=== PATIENT | male | born 1950 | race Caucasian/White ===

== ENCOUNTER 2020-06-15 05:42 | Day surgery (SDC) | payer OTHER, SELFPAY ==
[~2020-06-15] VITALS: Ht 174 cm; Wt 118.4 kg
[~2020-06-15 05:42] MED LIST: ATOR20 PO; BENADRYL25 MG PO; CLOP75 PO; Flonase 0.05% N16 GM; LISI5 PO; TAMS.4ER PO
--- NOTE | 2020-06-15 07:08 | NUR ---
Ambulatory in Day Surgery History, Chart, Medications and Allergies reviewed before start of procedure.Patient confirms NPO status and agrees with scheduled surgery. Patient reports completing Chlorhexadine shower X2 prior to admission to hospital.Surgical site prepped with 2% Chlorhexidine cloth wipe.
--- NOTE | 2020-06-15 12:02 | NUR ---
PT ARRIVED TO UNIT AT APROX 1145 FROM PACU. POD 0 L ANTERIOR HIP. AQUACEL DRESSING C/D/I. PT A/O, PT REPORTS PAIN /10 BUT STATES "I CAN DEAL WITH PAIN", DOES NOT APPEAR TO BE IN ANY DISTRESS AND APPEARS TO BE RESTING COMFORTABLY. PT OFFERED CLEAR LIQUIDS, WILL ADVANCE TOLERATED AND START ON PO PAIN MGMT ONCE HE IS TOLERATING PO.
--- NOTE | 2020-06-16 04:19 | NUR ---
SHIFT SUMMARY: PT POD#1 FOR LT ROSE. AQUACEL DRESSING C/D/I WITH POLAR PACK IN PLACE. PAIN BEING MANAGED WITH 5MG OXY Q4 AND SCHEDULED TORADOL+TYLENOL. PT SUGAR PO. DENIES N/V. VOIDING WELL. OUT OF BED TO BATHROOM WITH SBA AND FWW+GB. ABX COMPLETE. PT SALINE LOCKED. PLAN FOR PHYSICAL THERAPY TODAY THEN DISCHARGE HOME.
[2020-06-16 04:47] LABS: BASOPHILS ABSOLUTE AUTO 0.02 K/mm3 (0.00-0.23); BASOPHILS PERCENT AUTO 0 % (0-2); EOSINOPHILS ABSOLUTE AUTO 0.01 K/mm3 (0.00-0.68); EOSINOPHILS PERCENT AUTO 0 % (0-6); Hematocrit 39.2 % (37.0-53.0); Hemoglobin 12.9 g/dL (13.5-17.5); IMMATURE GRAN ABSOLUTE AUTO 0.06 K/mm3 (0.00-0.10); IMMATURE GRAN PERCENT AUTO 0 % (0-1); LYMPHOCYTES ABSOLUTE AUTO 1.41 K/mm3 (0.84-5.20); LYMPHOCYTES PERCENT AUTO 10 % (21-46); MONOCYTES ABSOLUTE AUTO 1.44 K/mm3 (0.16-1.47); MONOCYTES PERCENT AUTO 11 % (4-13); Mean Corpuscular HGB 29.5 pg (26.0-34.0); Mean Corpuscular HGB Conc 32.9 g/dL (31.5-36.5); Mean Corpuscular Volume 90 fL (80-100); NEUTROPHILS ABSOLUTE AUTO 10.82 K/mm3 (1.96-9.15); NEUTROPHILS PERCENT AUTO 79 % (41-73); Platelet Count 155 K/mm3 (150-400); RDW Coefficient Variation 12.8 % (11.7-14.2); Red Blood Cell Count 4.38 M/mm3 (4.30-5.90); White Blood Cell Count 13.76 K/mm3 (4.00-11.30)
[2020-06-16 05:07] LABS: Anion Gap 6 mmol/L (6-16); Blood Urea Nitrogen 29 mg/dL (8-24); Bun/Creatinine Ratio 25.4 (12.0-20.0); CO2, Blood 26 mmol/L (21-32); Chloride, Blood 104 mmol/L (98-108); Creatinine, Blood 1.14 mg/dL (0.60-1.20); Glomerular Filtration Rate >60 (60-); Glucose, Blood 141 mg/dL (70-99); Magnesium, Blood 2.2 mg/dL (1.6-2.4); Potassium, Blood 4.1 mmol/L (3.5-5.5); Sodium, Blood 136 mmol/L (136-145)
[2020-06-16] MEDS ORDERED: ACET500 PO (08:58)
[2020-06-16] MEDS ORDERED: ROXICODONE5 MG PO (08:58)
--- NOTE | 2020-06-16 09:51 | NUR ---
06/16/20 0951 Sandie Rodriguez VERIFICATIONS: EDIT CHART.
--- NOTE | 2020-06-16 10:03 | NUR ---
CHARIS BEEN HERE TO SEE PT.
--- NOTE | 2020-06-16 10:21 | NUR ---
THERAPY IN ROOM.
--- NOTE | 2020-06-16 10:59 | NUR ---
DISCHARGE: PT EATING, DRINKING, VOIDING, PASSING GAS. PT/FAMILY REPORTS UNDERSTANDING OF DISCHARGE ISTRUCTIONS. PT REPORTS HAVING WALKER AT HOME. PT CLEARED THERAPY TO GO HOME. PT SENT WITH DRESSING SUPPLIES, ICE MACHINE, BELONGINGS. IV OUT WNL, PT REPORTS NO OTHER IV'S IN PLACE. PT ASSISTED WITH GETTING DRESSED BY TIE TAPE MACHINE OPERATOR. PT REPORTS WOULD LIKE TO TAKE SHOWER AT HOME.
== END 2020-06-16 10:55 | disposition home or self-care (01) ==
LOC: ORSCMMR 05:42 → ORD 07:30 → ORSCMMR 07:30 → SURS 11:21 → ORSCMMR 06-16 10:55
PROVIDERS: Orthopaedic Surgery
PROC: 0SRB0JA Replacement of Left Hip Joint with Synthetic Substitute, Uncemented, Open Approach (ICD-10-PCS; principal; 2020-06-15 07:30)
DX: M16.12 Unilateral primary osteoarthritis, left hip (principal); I10 Essential (primary) hypertension; N18.30 Chronic kidney disease, stage 3 unspecified; E78.5 Hyperlipidemia, unspecified; Z86.73 Personal history of transient ischemic attack (TIA), and cerebral infarction without residual deficits; E66.01 Morbid (severe) obesity due to excess calories; Z68.39 Body mass index [BMI] 39.0-39.9, adult; Z79.899 Other long term (current) drug therapy
CPT/HCPCS: 36415; 72170; 80048; 83735; 85025; 88300; 97110; 97116; 97162; 97530; A9270; C1776; J0171; J0690; J0735; J1885; J2270; J2370; J2704; J2795; J3010; J7120

== ENCOUNTER → 2020-12-23 | Outpatient (CLI) | payer OTHER | END | disposition home or self-care (01) | LOC: LAB SHORT 09:50 | DX: D72.829 Elevated white blood cell count, unspecified (principal) ==

== ENCOUNTER → 2021-06-29 | Outpatient (CLI) | payer OTHER ==
[~2021-06-29] MED LIST changes: +ACET500 PO; +ROXICODONE5 MG PO
[2021-06-30 09:59] LABS: Stool Occult Bld Immuno 1 Negative (NEGATIVE)
== END ==
LOC: LAB SHORT 15:09
PROVIDERS: Internal Medicine
DX: Z12.11 Encounter for screening for malignant neoplasm of colon (principal)
CPT/HCPCS: 82274

== ENCOUNTER → 2022-01-24 | Outpatient (CLI) | payer OTHER | END | disposition home or self-care (01) | LOC: LAB SHORT 07:00 → LAB 07:00 | DX: K52.9 Noninfective gastroenteritis and colitis, unspecified (principal) | CPT/HCPCS: 87177; 87209; 89055 ==

== ENCOUNTER 2022-12-02 06:34 | Day surgery (SDC) | payer BC, OTHER ==
[~2022-12-02] VITALS: Ht 175.3 cm; Wt 116.5 kg
[2022-12-02] MEDS ORDERED: FURO20 (07:09)
[2022-12-02] MEDS ORDERED: LOPE2C (07:10)
[2022-12-02 09:03] VITALS: BP 122/75
== END 2022-12-02 09:02 | disposition home or self-care (01) ==
LOC: ORSCSDS 06:34
PROVIDERS: Student in an Organized Health Care Education/Training Program
PROC: 0DBL8ZX Excision of Transverse Colon, Via Natural or Artificial Opening Endoscopic, Diagnostic (ICD-10-PCS; principal; 2022-12-02 08:00)
PROC: 0DBN8ZX Excision of Sigmoid Colon, Via Natural or Artificial Opening Endoscopic, Diagnostic (ICD-10-PCS; principal; 2022-12-02 08:00)
PROC: 0DBH8ZX Excision of Cecum, Via Natural or Artificial Opening Endoscopic, Diagnostic (ICD-10-PCS; principal; 2022-12-02 08:00)
PROC: 0DBM8ZX Excision of Descending Colon, Via Natural or Artificial Opening Endoscopic, Diagnostic (ICD-10-PCS; principal; 2022-12-02 08:00)
PROC: 0DBE8ZX Excision of Large Intestine, Via Natural or Artificial Opening Endoscopic, Diagnostic (ICD-10-PCS; principal; 2022-12-02 08:00)
DX: R19.7 Diarrhea, unspecified (principal); D12.0 Benign neoplasm of cecum; D12.3 Benign neoplasm of transverse colon; D12.4 Benign neoplasm of descending colon; D12.5 Benign neoplasm of sigmoid colon; E66.01 Morbid (severe) obesity due to excess calories; Z68.41 Body mass index [BMI] 40.0-44.9, adult; N40.0 Benign prostatic hyperplasia without lower urinary tract symptoms; I12.9 Hypertensive chronic kidney disease with stage 1 through stage 4 chronic kidney disease, or unspecified chronic kidney disease; N18.2 Chronic kidney disease, stage 2 (mild); E78.00 Pure hypercholesterolemia, unspecified; Z79.899 Other long term (current) drug therapy; Z86.73 Personal history of transient ischemic attack (TIA), and cerebral infarction without residual deficits; Z79.02 Long term (current) use of antithrombotics/antiplatelets
CPT/HCPCS: 88305; J2704; J7120

== ENCOUNTER → 2023-12-19 | Outpatient (CLI) | payer BC, OTHER ==
[~2023-12-19] MED LIST changes: +FURO20; +LOPE2C
[2023-12-21 10:45] LABS: PANCREATIC ELASTASE,FECAL 213 ug/g (>=100)
== END | disposition home or self-care (01) ==
LOC: LAB 07:25 → LAB SHORT 07:25
PROVIDERS: Physician Assistant Medical
DX: R19.7 Diarrhea, unspecified (principal)
CPT/HCPCS: 82653

== ENCOUNTER 2024-04-03 20:39 | Emergency (ER) | payer BC, OTHER ==
[~2024-04-03] VITALS: Ht 175.3 cm; Wt 124.7 kg
[2024-04-03 20:59] VITALS: BP 144/95
[2024-04-03 23:35] LABS: Source, Urine Voided
[2024-04-03 23:44] LABS: Bilirubin, Urine Neg (Neg); Blood, Urine Neg (Neg); Glucose Qualitative, Urine Neg (Neg); Ketones, Urine Neg (Neg); Leukocyte Esterase, Urine Neg (Neg); Nitrite, Urine Neg (Neg); Protein, Urine 1+ (Neg); Urobilinogen, Urine NORM (Normal)
[2024-04-03 23:45] LABS: Appearance, Urine Clear (Clear); Color, Urine Yellow (P-Yellow)
[2024-04-03] MEDS ORDERED: Ketorolac Tromethamine 15mg Vial IM ONE (23:45)
== END 2024-04-03 23:59 | disposition home or self-care (01) ==
LOC: ER 20:39
PROVIDERS: Student in an Organized Health Care Education/Training Program
DX: N50.3 Cyst of epididymis (principal); Z79.899 Other long term (current) drug therapy
CPT/HCPCS: 76870; 96372; 99284-25; J1885